=== PATIENT | male | born 1965 | race Caucasian/White ===

== ENCOUNTER 2018-03-24 07:53 | Emergency (ER) | payer BC, MEDICAID, OTHER ==
[~2018-03-24] VITALS: Ht 167.6 cm; Wt 95.8 kg
[2018-03-24 07:55] VITALS: BP 156/89
[2018-03-24] MEDS ORDERED: PROPARACAINE OPHTH 0.5%, 15ML ONE (08:37)
[2018-03-24] MEDS ORDERED: PROPARACAINE OPHTH 0.5%, 15ML RIGHTEYE STA (08:40)
[2018-03-24] MEDS ORDERED: DIPHENHYDRAMINE 25 MG CAPSULE PO ONE (09:00)
[2018-03-24] MEDS ORDERED: DIPHENHYDRAMINE 25 MG CAPSULE ONE (09:09)
== END 2018-03-24 09:27 | disposition home or self-care (01) ==
LOC: ED 09:21
DX: H05.221 Edema of right orbit (principal)
CPT/HCPCS: 99283; Q0163

== ENCOUNTER 2020-10-03 15:19 | Emergency (ER) | payer OTHER ==
[~2020-10-03] VITALS: Ht 170.2 cm; Wt 91.4 kg
--- NOTE | 2020-10-03 15:55 | NUR ---
PT TO XRAY VIA [facility]
--- NOTE | 2020-10-03 16:08 | NUR ---
PT STATES NO BM EXCEPT VERY SMALL ROUND PIECES OF STOOL SINCE TUESDAY
[2020-10-03] MEDS ORDERED: MAGNESIUM CITRATE 300ML ORAL SOL ONE (17:12)
[2020-10-03 17:19] VITALS: BP 134/88
[2020-10-03] MEDS ORDERED: MAGNESIUM CITRATE 300ML ORAL SOL PO ONE (17:30)
== END 2020-10-03 17:48 | disposition home or self-care (01) ==
LOC: ED 16:24
DX: K59.00 Constipation, unspecified (principal); M10.9 Gout, unspecified; R10.9 Unspecified abdominal pain; I10 Essential (primary) hypertension
CPT/HCPCS: 74021; 99283